=== PATIENT | male | born 1960 | race Caucasian/White ===

== ENCOUNTER 2019-04-18 06:00 | Day surgery (SDC) | payer OTHER ==
[2019-04-10 09:59] LABS: ABSOLUTE EOSINOPHILS # (AUTO) 0.4 10^3/uL (0.0-0.6); ABSOLUTE LYMPHOCYTES (AUTO) 2.1 10^3/uL (0.5-4.7); ABSOLUTE MONOCYTES (AUTO) 0.6 10^3/uL (0.1-1.4); ABSOLUTE NEUT (AUTO) 4.6 10^3/uL (1.7-8.2); BASOPHILS % (AUTO) 0.6 % (0-2); EOSINOPHILS % (AUTO) 5.1 % (0-6); HEMATOCRIT 45.2 % (37.9-51.0); HEMOGLOBIN 15.5 g/dL (13.5-17.0); MEAN CORPUSCULAR HEMOGLOBIN 29.8 pg (27.0-33.4); MEAN CORPUSCULAR HGB CONC 34.4 g/dL (32.0-36.0); MEAN CORPUSCULAR VOLUME 87 fl (80-97); MONOCYTES % (AUTO) 7.2 % (3-13); PLATELET COUNT 291 10^3/uL (150-450); RED BLOOD COUNT 5.21 10^6/uL (4.35-5.55); RED CELL DISTRIBUTION WIDTH 13.5 % (11.5-14.0); SEGMENTED NEUTROPHILS % (AUTO) 60.1 % (42-78); TOTAL CELLS COUNTED % (AUTO) 100 %; WHITE BLOOD COUNT 7.7 10^3/uL (4.0-10.5)
[2019-04-10 10:08] LABS: INTERNATIONAL RATION (INR) 1.03; PROTHROMBIN TIME 13.5 SEC (11.4-15.4)
[2019-04-10 10:09] LABS: PARTIAL THROMBOPLASTIN TIME 28.6 SEC (23.5-35.8)
[2019-04-10 10:27] LABS: ANION GAP 12 (5-19); BLOOD UREA NITROGEN 14 mg/dL (7-20); CARBON DIOXIDE 30 mmol/L (22-30); CHLORIDE 99 mmol/L (98-107); GLUCOSE 143 mg/dL (75-110); POTASSIUM 4.4 mmol/L (3.6-5.0)
--- NOTE | 2019-04-10 14:48 | EKG REPORT ---
SEVERITY:- ABNORMAL ECG - SINUS RHYTHM INCOMPLETE RIGHT BUNDLE BRANCH BLOCK : Confirmed by: Sarai Woodson MD 10-Apr-2019 14:48:28
[~2019-04-18 06:00] MED LIST: DOXYCYCLINE HYCLATE 100 MG in DEXTROSE 5%-WATER 250 ML IV PRN; LACTATED RINGERS 1000 ML IV PRN; LIDOCAINE 0.5% INJ-PF (5 MG/ML) 50 ML SDV SUBCUT PRN
[2019-04-18] MEDS ORDERED: MIDAZOLAM 2 MG/2 ML INJ ONE (07:22)
[2019-04-18] MEDS ORDERED: LIDOCAINE 2% INJ-PF (20 MG/ML) 10 ML AMPUL ONE (07:22)
[2019-04-18] MEDS ORDERED: ONDANSETRON HCL INJ/PF 4 MG/2 ML SDV ONE (07:22)
[2019-04-18] MEDS ORDERED: PROPOFOL INJ 200 MG/20 ML VIAL IV ONE (07:22)
[2019-04-18] MEDS ORDERED: FENTANYL CITRATE INJ/PF 100 MCG/2 ML AMPUL ONE (07:22)
[2019-04-18] MEDS ORDERED: SODIUM BICARBONATE 4.2% INJ (2.5 MEQ/5 ML) VIAL ONE (07:32)
[2019-04-18] MEDS ORDERED: LIDOCAINE 1%/EPINEPHRINE INJ 20 ML VIAL ONE (07:32)
[2019-04-18] MEDS ORDERED: ONDANSETRON HCL INJ/PF 4 MG/2 ML SDV IV PRN (08:42)
[2019-04-18] MEDS ORDERED: PROMETHAZINE HCL INJ 25 MG/1 ML VIAL IV PRN (08:42)
[2019-04-18] MEDS ORDERED: DIPHENHYDRAMINE HCL 50 MG/ML VIAL IV PRN (08:42)
[2019-04-18] MEDS ORDERED: FENTANYL CITRATE INJ/PF 100 MCG/2 ML AMPUL IV PRN ×3 (08:42)
--- NOTE | 2019-04-18 10:01 | Operative Report ---
Operative Report DATE OF SURGERY: 04/18/19 PREOPERATIVE DIAGNOSIS: Deep mass of the neck that extended subfascial POSTOPERATIVE DIAGNOSIS: Deep mass of the neck that entered into the subfascial region OPERATION: Excision of deep mass of the neck with extension through the fascia with complex closure SURGEON: AVINASH SOTO ANESTHESIA: GA TISSUE REMOVED OR ALTERED: Lipoma of the neck COMPLICATIONS: None ESTIMATED BLOOD LOSS: 3 cc PROCEDURE: The patient was brought into the operating room after being marked. The patient was placed in a sloppy lateral position. The patient was then prepped with a Betadine scrub and Betadine solution. A timeout was performed. The area for resection was outlined. Injection of 1% lidocaine with epinephrine and bicarbonate was performed for its anesthetic and hemostatic effects. An incision was then made through the skin into the subcutaneous tissue. Dissection was performed [id number] to encounter the mass. Once the mass was encountered a dissection was performed 360 in order to remove the mass Retraction was used to facilitate exposure. Dissection was performed through the subcutaneous layers and down into the deeper soft tissue. The dissection was performed into the subfascial region where there was an extension of the mass entering deeper to below the fascia. [id number] the mass was dissected free of the surrounding tissue. Throughout the case hemostasis was achieved with the bipolar and the Bovie. Once the mass was completely dissected it was then removed. The area was washed with Betadine and sterile water solution. Hemostasis was confirmed. Closure was then performed using 3-0 Vicryl sutures. Because of the size of the mass deeper sutures were placed in order to minimize a deformity. The layers that were dissected were closed [id number] until we reached the deep dermis. 3-0 Vicryl was used for deep dermal sutures. A subcuticular stitch was placed using 3-0 PDS. A central support stitch was placed using 3-0 PDS. The wound was cleaned with Betadine prior to the final closure. Tincture of benzoin and Steri-Strips with a light pressure dressing was applied. Patient was then reversed from anesthesia and taken to the [facility] for recovery. The approximate size of the mass was 4-1/2 cm to 5 cm. This dictation was performed with dragon naturally speaking. If there are any inconsistencies or errors please contact the physician. Subjective: No complaints Objective: Vital signs stable afebrile No bleeding Dressing intact Assessment and plan: Doing well. Elevate the operative site. Resume medications. Take antibiotics for 1 day Follow-up Full instructions were given to the patient and family and they understand Portions of this note may be dictated using [employer]calc voice recognition software. Occasional variations and spelling and vocabulary could be possible and are unintentional. Additionally, there is a chance that some errors may not be caught or corrected. Please notify the offer of any discrepancies noted or if any statements are unclear.
--- NOTE | 2019-04-18 10:03 | Operative Report ---
Operative Report DATE OF SURGERY: 04/18/19 PREOPERATIVE DIAGNOSIS: Deep mass of the neck that extended subfascial POSTOPERATIVE DIAGNOSIS: Deep mass of the neck that entered into the subfascial region OPERATION: Excision of deep mass of the neck with extension through the fascia with complex closure SURGEON: AVINASH SOTO ANESTHESIA: GA TISSUE REMOVED OR ALTERED: Lipoma of the neck ESTIMATED BLOOD LOSS: 3 cc PROCEDURE: Please note that the closure was performed with three-point stitches reapproximating the deepest portion of the dermis subcu and the fascia. This was to reduce the amount of space. Strong bites of the fascia were taken in order to reapproximated in order to to also minimize an area for any fluid collection. 3-0 Vicryl was used for the deep dermis. 3-0 PDS was used for the subcuticular stitch. 3-0 PDS was used for the interrupted sutures on the skin surface.
--- NOTE | 2019-04-18 10:05 | Discharge Summary ---
Discharge Summary (SDC) - Discharge Final Diagnosis: Deep mass of the neck Date of Surgery: 04/18/19 Condition: Good Treatment or Instructions: Leave the top dressing on for 2 days, then removed. Leave the steri-strip tapes on for 5 days, then removal. Then cleaning wound with peroxide and apply Neosporin/bacitracin 3 times per day. Antibiotics for 1 day, then discontinue. Elevate operative area to decrease swelling. Do not strain, or lift heavy objects. Call for excessive bleeding, increased temperature of 101, uncontrolled pain, or excessive nausea or vomiting. You may reach Dr. Enciso through his office at [phone]. In the event of an emergency after hours, then contact Dr. Enciso through [facility]. Return to the office for a postop check on . The time will be scheduled by the nursing staff of [facility] prior to discharge. Please give the patient a copy of their labs and EKG so they can bring this to their PMD. Thank you Portions of this note may be dictated using [employer] voice recognition software. Occasional variations and spelling and vocabulary could be possible and are unintentional. Additionally, there is a chance that some errors may not be caught or corrected. Please notify the offer of any discrepancies noted or if any statements are unclear. Referrals: TAO FATIMA PA-C [Primary Care Provider] - Discharge Diet: As Tolerated Discharge Activity: No Lifting/Push/Pulling Report the Following to Your Physician Immediately: Unusual Bleeding - Keep neck extended towards the ceiling. Keep head elevated. Do not flex the neck. Do not twist the neck.
[2019-04-18 12:24] VITALS: BP 125/63
[2019-04-18] MEDS ORDERED: SUCCINYLCHOLINE CHLORIDE INJ 200 MG/10 ML VIAL ONE (14:18)
[2019-04-18] MEDS ORDERED: PHENYLEPHRINE HCL INJ/PF 10 MG/1 ML SDV ONE (14:18)
== END 2019-04-18 11:35 | disposition home or self-care (01) ==
LOC: OROUT 06:00
PROVIDERS: ATTEND Plastic Surgery
DX: D17.0 Benign lipomatous neoplasm of skin and subcutaneous tissue of head, face and neck (principal); I10 Essential (primary) hypertension; E11.9 Type 2 diabetes mellitus without complications; G47.39 Other sleep apnea; Z79.899 Other long term (current) drug therapy; Z79.84 Long term (current) use of oral hypoglycemic drugs
CPT/HCPCS: 93005; 36415 ×2; 82962; 84132; 85025; 85610; 85730; 80048; 88304 ×2; 93010; 00300; 21554; 13132; J2250; J3490 ×4; J3010; J2370; J0330; J2405; J7060; J2704; 300